=== PATIENT | female | born 1955 | race Caucasian/White ===

== ENCOUNTER 2019-06-27 22:22 | Emergency (ER) | payer BC, MEDICARE ==
--- NOTE | 2019-06-27 23:09 | EDM.PDOC ---
ED HPI GENERAL MEDICAL PROBLEM - General Chief Complaint: Respiratory Problem Stated Complaint: [facility] Time Seen by Provider: 06/27/19 22:37 Source of Information: Reports: Patient History Limitations: Reports: No Limitations - History of Present Illness INITIAL COMMENTS - FREE TEXT/NARRATIVE: Mrs. Clancy is a very pleasant 63-year-old woman with a past medical history significant for hypertension, dyslipidemia, remote peptic ulcer disease, and anxiety, who states that she has had a cough productive of clear sputum and dyspnea for the past 2 weeks or so. She was seen at the walk-in clinic about 2 weeks ago. She states that no tests were done, but she was prescribed a Z-Asael, which she took as prescribed. About 1 week ago she was tested for COVID-19, which returned negative. Since her symptoms did not improve, she returned to the walk-in clinic yesterday, 06/26/2019. A chest x-ray was reportedly negative. She states that a repeat COVID-19 test was performed, but she does not yet have the result. She was prescribed Levaquin, which she is currently taking as prescribed. She now presents to the ED by EMS after suffering a syncopal episode at home. She states that she was outside, developed significant shortness of breath and lightheadedness, came inside, then passed out. She does not believe that she was out for very long. She was not injured. She states that she was not coughing prior to passing out. She states that she did not feel any palpitations. Here in the ED, the patient states that she feels back to normal. She is hemodynamically stable, afebrile, saturating 94% on 2 L of supplemental oxygen, but when I removed the oxygen, she is saturating at 91% on room air. She does not take supplemental oxygen at home. Other than the cough and dyspnea, the patient denies recent fever, chills, sore throat, ear pain, nasal or sinus congestion, chest pain, palpitations, nausea, vomiting, constipation, diarrhea, abdominal pain, urinary symptoms, recent weight gain or weight loss, recent bloody bowel movements or black bowel movements, recent joint aches, headaches, or rashes. The patient's PCP is Dr. Angy Gilbert. - Related Data Allergies Allergy/AdvReac Type Severity Reaction Status Date / Time Penicillins Allergy Severe Rash Verified 06/27/19 22:37 Home Meds: Home Meds PARoxetine HCl [Paxil] 60 mg PO DAILY 06/27/19 [History] Past Medical History Cardiovascular History: Reports: High Cholesterol, Hypertension Gastrointestinal History: Reports: PUD (many years ago) Genitourinary History: Reports: Urinary Incontinence (slight stress incontinence ) Psychiatric History: Reports: Anxiety - Past Surgical History Female Surgical History: Reports: Tubal Ligation Musculoskeletal Surgical History: Reports: Arthroscopic Knee (left) Social & Family History - Tobacco Use Smoking Status *Q: Current Every Day Smoker Years of Tobacco use: 40 Packs/Tins Daily: 0.1 Packs/Tins Daily Comment: Down from 03/08 ppd - Caffeine Use Caffeine Use: Reports: Coffee - Alcohol Use Alcohol Use History: No - Recreational Drug Use Recreational Drug Use: No - Living Situation & Occupation Living situation: Reports: , with Spouse, with Family (Daughter) 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 - Physical Exam Exam: See Below Exam Limited By: No Limitations General Appearance: Alert, WD/WN, No Apparent Distress Eye Exam: Bilateral Eye: EOMI, Normal Inspection Ears: Normal External Exam, Hearing Grossly Normal Nose: Normal Inspection Throat/Mouth: Normal Inspection, Normal Lips, Normal Voice, No Airway Compromise Head Exam: Atraumatic, Normocephalic Neck: Normal Inspection, Full Range of Motion Respiratory/Chest: No Respiratory Distress, No Accessory Muscle Use, Rhonchi, Wheezing (mild, inspiratory and expiratory). No: Decreased Breath Sounds, Crackles, Stridor, Prolonged Expiration Cardiovascular: Normal Peripheral Pulses, Regular Rate, Rhythm, No Edema, No Gallop, No JVD, No Murmur, No Rub GI/Abdominal: Normal Bowel Sounds, Soft, Non-Tender, No Organomegaly, No Distention, No Abnormal Bruit, No Mass (Female) Exam: Deferred Rectal (Female) Exam: Deferred Neuro Exam (Abbreviated): Alert, Oriented, CN II-XII Intact, Normal Cognition, No Motor/Sensory Deficits Back Exam: Normal Inspection, Full Range of Motion, NT Extremities: Normal Inspection, Normal Range of Motion, No Pedal Edema, Normal Capillary Refill Psychiatric: Normal Affect Skin Exam: Warm, Dry, Intact, Normal Color, No Rash EKG INTERPRETATION EKG Date: 06/27/19 Time: 22:53 Rhythm: Other (Sinus bradycardia with 2 PACs) Rate (Beats/Min): 57 [place]: Normal P-Wave: Present QRS: Normal ST-T: Normal QT: Normal Comparison: NA - No Prior EKG Course - Vital Signs Last Recorded V/S: Last Vital Signs Temp 36.2 C 06/27/19 22:28 Pulse 80 06/27/19 22:28 Resp 16 06/27/19 22:28 BP 128/78 06/27/19 22:28 Pulse Ox 94 L 06/27/19 22:28 Orthostatic Blood Pressure [ 114/78 Standing] Orthostatic Blood Pressure [ 119/86 Sitting] Orthostatic Blood Pressure [ 119/75 Supine] - Orders/Labs/Meds Orders: Active Orders 24 hr Category Date Time Status EKG Documentation Completion [RC] STAT Care 06/27/19 22:58 Active Orthostatic Vital Signs [RC] STAT Care 06/27/19 23:00 Active Chest 2V [CR] Stat Exams 06/27/19 22:58 Taken Heparin Sodium/D5W [Heparin 25,000 Units in D5W 500 ML] Med 06/28/19 00:30 Ordered 25,000 units in 500 ml IV TITRATE Medication Orders Heparin Sodium/Dextrose (Heparin 25,000 Units In D5w 500 Ml) 25,000 units in 500 mls @ 13.8 mls/hr IV TITRATE SAMIA; Protocol Labs: Laboratory Tests 06/27/19 06/27/19 06/27/19 Range/Units 23:15 23:15 23:15 WBC 13.63 H (3.98-10.04) K/mm3 RBC 5.14 (3.98-5.22) M/mm3 Hgb 15.4 (11.2-15.7) gm/dl Hct 47.1 H (34.1-44.9) % MCV 91.6 (79.4-94.8) fl MCH 30.0 (25.6-32.2) pg MCHC 32.7 (32.2-35.5) g/dl RDW Std Deviation 47.5 H (36.4-46.3) fL Plt Count 232 (182-369) K/mm3 MPV 10.1 (9.4-12.3) fl Neutrophils % (Manual) 72 H (40-60) % Band Neutrophils % 0 (0-10) % Lymphocytes % (Manual) 12 L (20-40) % Atypical Lymphs % 0 % Monocytes % (Manual) 4 (2-10) % Eosinophils % (Manual) 12 H (0.7-5.8) % Basophils % (Manual) 0 L (0.1-1.2) Platelet Estimate Adequate RBC Morph Comment Normal PT 11.9 (9.7-12.0) SECONDS INR 1.10 APTT 30 (22-31) SECONDS D-Dimer, Quantitative 0.38 (0.19-0.50) mg/L Sodium 143 (136-145) mEq/L Potassium 4.0 (3.5-5.1) mEq/L Chloride 106 (98-107) mEq/L Carbon Dioxide 26 (21-32) mEq/L Anion Gap 15.0 (5-15) BUN 15 (7-18) mg/dL Creatinine 1.0 (0.55-1.02) mg/dL Est Cr Clr Drug Dosing 48.43 mL/min Estimated GFR (MDRD) 56 (>60) mL/min BUN/Creatinine Ratio 15.0 (14-18) Glucose 138 H (80-115) mg/dL Lactic Acid (0.4-2.0) mmol/L Calcium 9.7 (8.5-10.1) mg/dL Magnesium 1.9 (1.8-2.4) mg/dl Ferritin (8-252) ng/ml Total Bilirubin 0.3 (0.2-1.0) mg/dL AST 57 H (15-37) U/L ALT 69 H (14-59) U/L Alkaline Phosphatase 122 H (46-116) U/L Creatine Kinase 580 H (26-192) U/L Troponin I 0.323 H* (0.00-0.056) ng/mL C-Reactive Protein <0.2 (<1.0) mg/dL NT-Pro-B Natriuret Pep (0-125) pg/mL Total Protein 7.0 (6.4-8.2) g/dl Albumin 3.8 (3.4-5.0) g/dl Globulin 3.2 gm/dL Albumin/Globulin Ratio 1.2 (1-2) 06/27/19 06/27/19 06/27/19 Range/Units 23:15 23:15 23:15 WBC (3.98-10.04) K/mm3 RBC (3.98-5.22) M/mm3 Hgb (11.2-15.7) gm/dl Hct (34.1-44.9) % MCV (79.4-94.8) fl MCH (25.6-32.2) pg MCHC (32.2-35.5) g/dl RDW Std Deviation (36.4-46.3) fL Plt Count (182-369) K/mm3 MPV (9.4-12.3) fl Neutrophils % (Manual) (40-60) % Band Neutrophils % (0-10) % Lymphocytes % (Manual) (20-40) % Atypical Lymphs % % Monocytes % (Manual) (2-10) % Eosinophils % (Manual) (0.7-5.8) % Basophils % (Manual) (0.1-1.2) Platelet Estimate RBC Morph Comment PT (9.7-12.0) SECONDS INR APTT (22-31) SECONDS D-Dimer, Quantitative (0.19-0.50) mg/L Sodium (136-145) mEq/L Potassium (3.5-5.1) mEq/L Chloride (98-107) mEq/L Carbon Dioxide (21-32) mEq/L Anion Gap (5-15) BUN (7-18) mg/dL Creatinine (0.55-1.02) mg/dL Est Cr Clr Drug Dosing mL/min Estimated GFR (MDRD) (>60) mL/min BUN/Creatinine Ratio (14-18) Glucose (80-115) mg/dL Lactic Acid 2.6 H* (0.4-2.0) mmol/L Calcium (8.5-10.1) mg/dL Magnesium (1.8-2.4) mg/dl Ferritin 146 (8-252) ng/ml Total Bilirubin (0.2-1.0) mg/dL AST (15-37) U/L ALT (14-59) U/L Alkaline Phosphatase (46-116) U/L Creatine Kinase (26-192) U/L Troponin I (0.00-0.056) ng/mL C-Reactive Protein (<1.0) mg/dL NT-Pro-B Natriuret Pep 234 H (0-125) pg/mL Total Protein (6.4-8.2) g/dl Albumin (3.4-5.0) g/dl Globulin gm/dL Albumin/Globulin Ratio (1-2) Meds: Medications Generic Name Dose Route Start Last Admin Trade Name Freq PRN Reason Stop Dose Admin Heparin Sodium/Dextrose 25,000 units in 500 mls @ 13.8 mls/hr 06/28/19 00:30 Heparin 25,000 Units In D5w 500 Ml IV TITRATE SAMIA Protocol 690 UNITS/HR Discontinued Medications Generic Name Dose Route Start Last Admin Trade Name Freq PRN Reason Stop Dose Admin Aspirin 324 mg 06/28/19 00:01 Aspirin PO 06/28/19 00:02 ONETIME STA Heparin Sodium (Porcine) 3,450 units 06/28/19 00:20 Heparin Sodium IVPUSH 06/28/19 00:21 .BOLUS STA Metoprolol Tartrate 5 mg 06/28/19 00:01 Lopressor IVPUSH 06/28/19 00:02 ONETIME ONE - Re-Assessments/Exams Free Text/Narrative Re-Assessment/Exam: 06/27/19 23:00 As above, the patient suffered a syncopal episode at home that was not associated with a paroxysm of cough. She is uninjured. Here in the ED, she is hemodynamically stable, saturating 91% on room air, and she states that she feels back to normal. I have ordered a work-up that includes blood work, orthostatics, a chest x-ray, and an ECG. 06/27/19 23:23 The patient is not orthostatic. 06/27/19 23:54 Two-view chest radiograph reviewed. The cardiac silhouette is within normal limits. No pulmonary vascular congestion. No pleural effusions. No focal infiltrate. No pneumothorax. There is hyperinflation and bilateral diaphragmatic flattening, consistent with COPD. Thoracolumbar scoliosis noted. Formal read per the Radiologist pending. 06/28/19 00:03 The patient's CMP was remarkable for a blood glucose modestly elevated at 138, an AST/ALT elevated at 57/69, respectively, and an alkaline phosphatase mildly elevated at 122, with the remainder of her CMP being unremarkable. Her magnesium level this is within normal limits at 1.9. Her troponin is elevated at 0.323. Her CPK is elevated at 580. Her D-dimer is within normal limits at 0.38. Her coags are within normal limits. Her lactic acid level is mildly elevated at 2.6. Her CRP is undetectably low. Her CBC, BMP, and ferritin are still pending. Based on the above, I have ordered 4 baby aspirin and 5 mg of IV Lopressor. 06/28/19 00:07 The above was discussed with the patient. I would like to discuss this with a Auto Service Writer, in anticipation of transfer to [place]. The patient prefers [facility]. 06/28/19 00:13 The patient's CBC is remarkable for WBC count elevated at 13.63, but with 0% bandemia. The remainder of her CBC is unremarkable. Her BNP is mildly elevated at 234. Her ferritin is within normal limits at 146. 06/28/19 00:24 Case discussed with Vincenzo at [facility] at 00:08. Case then discussed with Dr. Connelly, Hospitalist at [facility], at 00: 15. We agreed that I will start the patient on a heparin drip. He accepted the patient for direct admission. The patient will be transported by ground ambulance. The chest x-ray images were pushed to [facility] at 00:24. Departure - Departure Time of Disposition: 00:25 Disposition: DC/Tfer to Acute Hospital 02 Condition: Good Clinical Impression: Non-STEMI (non-ST elevated myocardial infarction) - Discharge Information *PRESCRIPTION DRUG MONITORING PROGRAM REVIEWED*: Not Applicable *COPY OF PRESCRIPTION DRUG MONITORING REPORT IN PATIENT CHRISTIANNE: Not Applicable Referrals: Angy Chu MD [Primary Care Provider] - Forms: ED Department Discharge Sepsis Event Note - Evaluation Sepsis Screening Result: No Definite Risk - Focused Exam Vital Signs: Vital Signs Temp Pulse Resp BP Pulse Ox 06/27/19 22:28 36.2 C 80 16 128/78 94 L Date Exam was Performed: 06/28/19 Time Exam was Performed: 00:38 - My Orders Last 24 Hours: My Active Orders 06/27/19 22:58 EKG Documentation Completion [RC] STAT Chest 2V [CR] Stat 06/27/19 23:00 Orthostatic Vital Signs [RC] STAT 06/28/19 00:30 Heparin Sodium/D5W [Heparin 25,000 Units in D5W 500 ML] 25,000 units in 500 ml IV TITRATE - Assessment/Plan Last 24 Hours: My Active Orders 06/27/19 22:58 EKG Documentation Completion [RC] STAT Chest 2V [CR] Stat 06/27/19 23:00 Orthostatic Vital Signs [RC] STAT 06/28/19 00:30 Heparin Sodium/D5W [Heparin 25,000 Units in D5W 500 ML] 25,000 units in 500 ml IV TITRATE
[2019-06-28] MEDS ORDERED: Metoprolol Tartrate 5 MG/5 ML SDV IVPUSH ONE (00:01)
[2019-06-28] MEDS ORDERED: Aspirin 81 MG Tab.Chew PO STA (00:01)
[2019-06-28] MEDS ORDERED: Heparin Sodium 5,000 Units/ML Vial IVPUSH STA (00:20)
[2019-06-28] MEDS ORDERED: Heparin Sodium/D5W 25,000 UNITS/500 ML BAG IV SCH (00:30)
--- NOTE | 2019-06-28 09:43 | CR ---
Chest: 2 views of the chest were obtained. Comparison: No prior chest imaging. Heart size is normal. Tortuous thoracic aorta is seen. Lungs are clear. Mild scoliosis is present within the spine. Scattered endplate osteophytes are noted within the spine. Lungs are slightly hyperinflated on the lateral view suggesting emphysematous change. Impression: 1. Possible emphysematous change. 2. Nothing acute is appreciated on 2 view chest x-ray. Diagnostic code #2 This report was dictated in MDT
== END 2019-06-28 01:17 ==
LOC: JD.ED 22:22
DX: I21.4 Non-ST elevation (NSTEMI) myocardial infarction (principal); I10 Essential (primary) hypertension; F41.9 Anxiety disorder, unspecified; F17.210 Nicotine dependence, cigarettes, uncomplicated; Z79.899 Other long term (current) drug therapy
CPT/HCPCS: 36415; 71046; 80053; 82550; 82728; 83605; 83735; 83880; 84484; 85007; 85027; 85379; 85610; 85730; 86140; 93005; 96365; 96375; 99285; A9270; J1644; J3490; 93010

== ENCOUNTER 2020-01-14 08:31 | Day surgery (SDC) | payer BC, MEDICARE ==
[~2020-01-14 08:31] MED LIST: Lactated Ringers 1,000 ML IV SCH; Lidocaine 1%/Sod Bicarbonate in NS 8.4% 1 ML Syringe IDERM PRN; Sodium Chloride 0.9% 10 ML Syringe FLUSH PRN
[2020-01-14] MEDS ORDERED: Lidocaine 1% 30 ML SDV ONE (08:35)
[2020-01-14] MEDS ORDERED: Albuterol 0.083% 2.5 MG/3 ML Neb Soln NEB ONE (09:02)
--- NOTE | 2020-01-14 09:38 | PCM.PREANE ---
Preanesthetic Assessment - Procedure Proposed Procedure: Bilateral laparoscopic inguinal hernia repair - Anesthesia/Transfusion/Family Hx Anesthesia History: Prior Anesthesia Without Reaction Family History of Anesthesia Reaction: No - Review of Systems General: Fatigue Pulmonary: Cough (Former smoker, quit June 2019. Occasional Cough. COPD. Follows with pulmonology, stable. Advair use daily. Rescue inhaler for SOB as needed. SpO2 95% on room air today. ) Cardiovascular: Other (Stress/Tachycardia induced cardiomyopathy. Cardiac Cath 06/28/19, normal coronary arteries, Echo mild left atrial enlargement EF 55-60%. ) Gastrointestinal: No Symptoms Neurological: No Symptoms Other: Reports: None - Physical Assessment NPO Status Date: 01/13/20 NPO Status Time: 18:00 Vital Signs: Last Vital Signs Temp 36.1 C 01/14/20 09:03 Pulse 74 01/14/20 09:03 Resp 18 01/14/20 09:03 BP 139/62 01/14/20 09:03 Pulse Ox 95 01/14/20 09:03 Weight: 67 kg ASA Class: 3 Mental Status: Alert & Oriented x3 Airway Class: Mallampati = 2 Dentition: Reports: Dentures (Upper), Partial (Lower) Thyro-Mental Finger Breadths: 3 Mouth Opening Finger Breadths: 3 ROM/Head Extension: Full Lungs: Clear to Auscultation, Normal Respiratory Effort Cardiovascular: Regular Rate (Occasional PAC noted on PACU monitor. ), Regular Rhythm - Imaging/EKG Impressions: NSR at 57 BPM - Allergies Allergies/Adverse Reactions: Allergies Allergy/AdvReac Type Severity Reaction Status Date / Time Penicillins Allergy Intermediate Rash Verified 01/14/20 08:58 - Anesthesia Plan Pre-Op Medication Ordered: Anxiolytic, Other (Albuterol Neb Treatment) - Acknowledgements Anesthesia Type Planned: General Anesthesia Pt an Appropriate Candidate for the Planned Anesthesia: Yes Alternatives and Risks of Anesthesia Discussed w Pt/Guardian: Yes Pt/Guardian Understands and Agrees with Anesthesia Plan: Yes PreAnesthesia Questionnaire HEENT History: Reports: Impaired Vision, Other (See Below) Other HEENT History: has dentures, glasses/contacts Cardiovascular History: Reports: Cardiomyopathy, High Cholesterol, Hypertension, Other (See Below) Other Cardiovascular History: heart catheterization, elevated troponin, stress inducted cardiomyopathy Respiratory History: Reports: COPD, SOB Gastrointestinal History: Reports: PUD Other Gastrointestinal History: inguinal hernias Genitourinary History: Reports: Urinary Incontinence [employer]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: Reports: None Musculoskeletal History: Reports: Other (See Below) Other Musculoskeletal History: right ankle pain, bilateral knee pain, rhabdomylosis Neurological History: Reports: Other (See Below) Other Neuro History: syncope Psychiatric History: Reports: Anxiety Endocrine/Metabolic History: Reports: None Hematologic History: Reports: None Immunologic History: Reports: None Oncologic (Cancer) History: Reports: None Dermatologic History: Reports: None - Infectious Disease History Infectious Disease History: Reports: None - Past Surgical History HEENT Surgical History: Reports: Oral Surgery Cardiovascular Surgical History: Reports: None Respiratory Surgical History: Reports: None GI Surgical History: Reports: None Female Surgical History: Reports: Tubal Ligation Endocrine Surgical History: Reports: None Neurological Surgical History: Reports: None Musculoskeletal Surgical History: Reports: Arthroscopic Knee, Knee Replacement Oncologic Surgical History: Reports: None Dermatological Surgical History: Reports: None - SUBSTANCE USE Tobacco Use Status *Q: Former Tobacco User - HOME MEDS Home Medications: Home Meds PARoxetine HCl [Paxil] 40 mg PO DAILY 06/27/19 [History] Albuterol [Proventil Neb Soln] 1 dose NEB QID PRN 01/13/20 [History] Albuterol [Take Home: Albuterol 18 GM, 1 INH Pack] 2 puff INH Q4H PRN 01/13/20 [History] Albuterol/Ipratropium [DuoNeb 3.0-0.5 MG/3 ML] 1 dose NEB QID PRN 01/13/20 [History] Aspirin 81 mg PO DAILY 01/13/20 [History] Fluticasone/Salmeterol [Advair HFA 45-21 MCG] 2 puff INH BID 01/13/20 [History] Lisinopril/Hydrochlorothiazide [Lisinopril-Hctz 20-12.5 mg Tab] 1 tab PO DAILY 01/13/20 [History] Metoprolol Succinate [Toprol XL] 12.5 mg PO DAILY 01/13/20 [History] PARoxetine [Paxil] 20 mg PO DAILY 01/13/20 [History] atorvaSTATin [Lipitor] 20 mg PO BEDTIME 01/13/20 [History] - CURRENT (IN HOUSE) MEDS Current Meds: Current Medications Lactated Ringer's (Ringers, Lactated) 1,000 mls @ 125 mls/hr IV ASDIRECTED SAMIA Stop: 01/14/20 23:00 Last Admin: 01/14/20 09:00 Dose: 125 mls/hr Documented by: Lidocaine/Sodium Bicarbonate (Buffered Lidocaine 1% In Ns 8.4%) 0.25 ml IDERM ONETIME PRN PRN Reason: Prior to IV Start Stop: 01/14/20 18:00 Last Admin: 01/14/20 09:00 Dose: 0.25 ml Documented by: Sodium Chloride (Saline Flush) 10 ml FLUSH ASDIRECTED PRN PRN Reason: Keep Vein Open Stop: 01/14/20 18:00 Discontinued Medications Albuterol (Proventil Neb Soln) 2.5 mg NEB ONETIME ONE Stop: 01/14/20 09:03 Lidocaine HCl (Xylocaine-Mpf 1%) Confirm Administered Dose 30 ml .ROUTE .STK-MED ONE Stop: 01/14/20 08:36
[2020-01-14] MEDS ORDERED: Propofol 200 MG/20 ML SDV ONE (09:54)
[2020-01-14] MEDS ORDERED: Lidocaine 1% 4 ML ONE (09:55)
[2020-01-14] MEDS ORDERED: fentaNYL 250 MCG/5 ML SDV ONE ×2 (09:55→11:42)
[2020-01-14] MEDS ORDERED: Midazolam 1 MG/ML 2 ML SDV ONE (09:55)
[2020-01-14] MEDS ORDERED: Rocuronium 50 MG/5 ML Vial ONE ×2 (09:57→10:58)
[2020-01-14] MEDS ORDERED: Clindamycin Phosphate in D5W 900 MG in Premix Bag 1 BAG IV ONE ×2 (10:00)
[2020-01-14] MEDS ORDERED: Ondansetron 4 MG/2 ML SDV ONE (10:15)
[2020-01-14] MEDS ORDERED: Dexamethasone 4 MG/ML 5 ML MDV ONE (10:15)
[2020-01-14] MEDS ORDERED: ePHEDrine 50 MG/ML SDV ONE (10:41)
[2020-01-14] MEDS ORDERED: Esmolol 100 MG/10 ML SDV ONE (10:59)
[2020-01-14] MEDS ORDERED: Lactated Ringers 1,000 ML ONE (11:18)
[2020-01-14] MEDS ORDERED: Ondansetron 4 MG/2 ML SDV IVPUSH PRN (13:59)
[2020-01-14] MEDS ORDERED: diphenhydrAMINE 50 MG/ML SDV IVPUSH PRN (13:59)
[2020-01-14] MEDS ORDERED: fentaNYL 100 MCG/2 ML SDV IVPUSH PRN (13:59)
--- NOTE | 2020-01-14 14:01 | PCM.POSTAN ---
POST ANESTHESIA ASSESSMENT - MENTAL STATUS Mental Status: Somnolent - VITAL SIGNS Vital Signs: Last Vital Signs Temp 36.2 C 01/14/20 13:50 Pulse 74 01/14/20 09:03 Resp 21 H 01/14/20 13:50 BP 164/83 H 01/14/20 13:50 Pulse Ox 99 01/14/20 13:50 - RESPIRATORY Respiratory Status: Respiratory Rate WNL, Airway Patent, O2 Saturation Stable, Supplemental Oxygen - CARDIOVASCULAR CV Status: Pulse Rate WNL, Blood Pressure Stable, Elevated Pulse Rate, Elevated Blood Pressure - GASTROINTESTINAL GI Status: No Symptoms - PAIN Pain Score: 0 - POST OP HYDRATION Hydration Status: Adequate & Stable
[2020-01-14] MEDS ORDERED: Acetaminophen/HYDROcodone 325-5 MG Tab PO PRN (14:44)
[2020-01-14] MEDS ORDERED: Ketorolac 30 MG/ML SDV IVPUSH ONE (14:59)
--- NOTE | 2020-01-14 15:23 | PCM48HPAN ---
Post Anesthesia Note - EVALUATION WITHIN 48HRS OF ANESTHETIC Vital Signs in Normal Range: Yes Patient Participated in Evaluation: Yes Respiratory Function Stable: Yes Airway Patent: Yes Cardiovascular Function Stable: Yes Hydration Status Stable: Yes Pain Control Satisfactory: Yes Nausea and Vomiting Control Satisfactory: Yes Mental Status Recovered: Yes Vital Signs: Last Vital Signs Temp 36.2 C 01/14/20 14:45 Pulse 71 01/14/20 15:00 Resp 16 01/14/20 15:00 BP 111/56 L 01/14/20 15:00 Pulse Ox 93 L 01/14/20 15:00
--- NOTE | 2020-01-14 17:49 | PROC ---
Duplicate. Please disregard MTDD
--- NOTE | 2020-01-14 18:03 | OR ---
DATE OF OPERATION: 01/14/2020 SURGEON: Sayra Ribeiro MD PREOPERATIVE DIAGNOSIS: Bilateral inguinal hernia, symptomatic. POSTOPERATIVE DIAGNOSIS: Bilateral inguinal hernia, symptomatic. OPERATION PERFORMED: 1. Laparoscopic bilateral inguinal hernia repair with mesh. 2. Umbilical hernia repair without mesh ANESTHESIA: General endotracheal. ESTIMATED BLOOD LOSS: 50 mL. COMPLICATIONS: None. PROJECT MANAGEMENT PROFESSOR: Medical student Catie Jj MS3 assisted with holding the camera during the procedure as well as closing the incision sites. INDICATIONS AND CONSENT: The patient is a 64-year-old female who has bilateral inguinal hernias that are chronic. These are causing a lot of discomfort for the patient right now. Therefore, she decided to have them repaired. She came to my clinic. I evaluated her and she was a good candidate for laparoscopic repair, which was offered to her. She agreed to proceed with the procedure. We discussed risks, benefits, and alternatives, and informed consent was obtained. DESCRIPTION OF PROCEDURE: The patient was taken to the operating room, placed in supine position. SCDs were placed and the patient was padded appropriately. Arms were tucked bilaterally. Jimenez was placed. Then, time-out was performed, preop antibiotics were given, and the abdomen was clipped of any hair. Then, the abdomen was prepped and draped in the usual sterile fashion. After this, we began by injecting local anesthetic in the infraumbilical position. A 12 mm trocar was placed under direct visualization after insufflation through a Veress needle. Inspection of the abdomen did not reveal any injury to the Veress needle insertion or trocar insertion. Two 5 mm trocars were placed, 1 on the left mid abdomen, another 1 on the right mid abdomen at the level of the umbilicus bilaterally. Then, the patient positioning was changed to slight Trendelenburg. Clearly, bilateral hernias were visualized. On the right side, there was a pantaloon hernia. On the left side was a medium-sized indirect inguinal hernia. At this point, we began by opening up the peritoneum about 4 to 5 cm above the hernia defect. We started on the right side. The lateral peritoneal flap was made bluntly with graspers. Any point bleeding was controlled with cautery. Then medially, the peritoneum was from the abdominal wall as well all the way to the Alexei's ligament. Then, we turned our attention to both direct and indirect hernias. We meticulously took down both hernias. The round ligament was encountered. It was clipped proximal as well as distally and transected with cautery. The peritoneum was reduced leaving a good area of the hernia defect as well as an area for mesh overlap. Then, we turned our attention to the left side. Once again, peritoneum was opened. A flap was created laterally and medially to the Alexei ligament and then the indirect hernia was taken down. Then, we examined the direct area. We found a lipoma in the direct space. This was taken down. Once the medial and lateral sides were done, we paid attention to the hernia sac. This was taken down. The round ligament once again was transected after being clipped distally and proximally. Once we were satisfied with our hernia reduction and preperitoneal space, we brought pre-shaped meshes. These were Bard 3DMax meshes size 10.8 cm x 16.0 cm both left and right. These were placed in the respective inguinal hernias providing about 1 cm overlap at midline. Once these were sitting well, both left and right sides were tacked at the Alexei ligament so that to keep the overlap fixed and they were tacked as well laterally above the ASIS. Once this was done, the peritoneal defect was reapproximated to the abdominal wall with tacks and this was done once the insufflation was reduced to 10. Once this was completed, the abdomen was desufflated. The infraumbilical trocar site was closed with 0 Vicryl stitches and the trocar sites were closed with 4-0 Monocryl and Dermabond was applied. Of note, as we were closing the umbilical site, we found an umbilical hernia containing omentum at this site. The sac was dissected and the umbilical hernia contents were reduced and was repaired without mesh as it was about 1 cm in diameter. The repair was done with 0 Vicryl stitches and then the umbilical stalk was re-established with another 0 Vicryl stitch and then the skin was reapproximated with 4-0 Monocryl. Then, the procedure was concluded. At the end of the procedure, all instruments, sharps, and sponges were counted and found to be correct x2. The patient was awoken from anesthesia and taken to the PACU in stable condition. The patient will be allowed to return home and continue recovery at home. The patient will follow up with me in 2 weeks or sooner should any problems arise. PINEDA /[id number]
== END 2020-01-14 16:02 | disposition home or self-care (01) ==
LOC: JD.SDS 08:31
PROVIDERS: ATTEND Surgery
DX: K40.20 Bilateral inguinal hernia, without obstruction or gangrene, not specified as recurrent (principal); K42.9 Umbilical hernia without obstruction or gangrene; D17.5 Benign lipomatous neoplasm of intra-abdominal organs; F41.9 Anxiety disorder, unspecified; E78.00 Pure hypercholesterolemia, unspecified; G89.29 Other chronic pain; I10 Essential (primary) hypertension; J44.9 Chronic obstructive pulmonary disease, unspecified; Z98.890 Other specified postprocedural states; Z88.0 Allergy status to penicillin; Z87.891 Personal history of nicotine dependence; I42.9 Cardiomyopathy, unspecified; Z79.899 Other long term (current) drug therapy
CPT/HCPCS: 00840; 94640; C1781; J1100; J1885; J2001; J2250; J2370; J2405; J2704; J2710; J3010; J3490; J7120